=== PATIENT | male | born 1990 | race Two or more races ===

== ENCOUNTER 2016-11-16 19:40 | Emergency (ER) | payer SELFPAY ==
[~2016-11-16] VITALS: Ht 172.7 cm; Wt 76.2 kg
[2016-11-16 19:52] VITALS: BP 122/64
[2016-11-16] MEDS ORDERED: DIPHTH,PERTUSS(ACELL),TET TOX 0.5 ML DISP.SYRIN. VAX IM ONE (20:15)
--- NOTE | 2016-11-16 20:21 | PHYS DOC ---
Past Medical History Past Medical History: No Pertinent History Past Surgical History: No Surgical History Alcohol Use: None Drug Use: None Adult General Chief Complaint Chief Complaint: LACERATION/AVULSION HPI HPI Patient is a 26 year old male with no significant medical history who presents with left biceps laceration. Patient states she was passing by a door handle when the door handle stabbed him on the left biceps. Review of Systems Review of Systems Constitutional: Denies fever or chills [] Eyes: Denies change in visual acuity, redness, or eye pain [] HENT: Denies nasal congestion or sore throat [] Respiratory: Denies cough or shortness of breath [] Cardiovascular: No additional information not addressed in HPI [] GI: Denies abdominal pain, nausea, vomiting, bloody stools or diarrhea [] : Denies dysuria or hematuria [] Musculoskeletal: Denies back pain or joint pain [] Integument:left biceps laceration Neurologic: Denies headache, focal weakness or sensory changes [] Endocrine: Denies polyuria or polydipsia [] Current Medications Current Medications Current Medications Medications (Trade) Dose Ordered Sig/Charla Start Time Stop Time Status Last Admin Dose Admin Diphtheria/ Tetanus/Acell Pertussis (Boostrix) 0.5 ml ONCE ONCE 11/16/16 20:15 11/16/16 20:16 DC 11/16/16 20:17 0.5 ML Lidocaine/Sodium Bicarbonate (Buffered Lidocaine 1%) 20 ml 1X ONCE 11/16/16 20:30 11/16/16 20:31 DC 11/16/16 20:17 20 ML Allergies Allergies Allergies Coded Allergies Type Severity Reaction Last Updated Verified No Known Drug Allergies 11/16/16 No Physical Exam Physical Exam Constitutional: Well developed, well nourished, no acute distress, non-toxic appearance. [] HENT: Normocephalic, atraumatic, bilateral external ears normal, oropharynx moist, no oral exudates, nose normal. [] Eyes: PERRLA, EOMI, conjunctiva normal, no discharge. [] Neck: Normal range of motion, no tenderness, supple, no stridor. [] Cardiovascular:Heart rate regular rhythm, no murmur [] Lungs & Thorax: Bilateral breath sounds clear to auscultation [] Abdomen: Bowel sounds normal, soft, no tenderness, no masses, no pulsatile masses. [] Skin: Left biceps with a laceration approximately 3 cm long. There is no tendon involvement. Full range of motion to the left upper extremity. +2 left radial pulse. Cap refill less than 2 seconds left upper extremity. Adequate ulna medial and radial sensation to the left upper extremity. Extremities: No tenderness, no cyanosis, no clubbing, ROM intact, no edema. [] Neurologic: Alert and oriented X 3, normal motor function, normal sensory function, no focal deficits noted. [] Psychologic: Affect normal, judgement normal, mood normal. [] Current Patient Data Vital Signs Vital Signs Date Time Temp Pulse Resp B/P Pulse Ox O2 Delivery O2 Flow Rate FiO2 11/16/16 19:52 98.7 52 18 122/64 98 Room Air 98.7 EKG EKG [] Radiology/Procedures Radiology/Procedures Indication: Left biceps laceration Procedure: The patient was placed in the appropriate position and anesthesia around the laceration was 1% buffered lidocaine, the laceration was cleaned with the 100 ML of normal saline and Betadine. The laceration was closed with 4 interrupted sutures using 4. 0 Ethilon. The wound was covered with nonstick dressing. Total repaired wound length: Approximately 2 cm long Other Items: None The patient tolerated the procedure well Complications: None Course & Med Decision Making Course & Med Decision Making Pertinent Labs and Imaging studies reviewed. (See chart for details) Patient is in the ED with stab wound from a door handle to the left biceps. The laceration was closed as noted in procedures. Tetanus was updated. Provided wound care instructions as well as return precautions. Discharged in stable condition. F/u with PCP or Ed in 7-10 days for suture removal Dragon Disclaimer Dragon Disclaimer This electronic medical record was generated, in whole or in part, using a voice recognition dictation system. Departure Departure Impression: Primary Impression: Laceration of upper arm Disposition: 01 HOME, SELF-CARE Condition: STABLE (year and injury dysphagia like) Patient Instructions: Laceration Care, Adult Additional Instructions: You have left upper arm laceration. Keep it clean and dry. Apply Neosporin to the area twice a day. Follow up with the Ed or your doctor in 7-10 days for suture removal Problem Qualifiers Primary Impression: Laceration of upper arm Encounter type: initial encounter Laterality: left Qualified Code: S41.112A - Laceration without foreign body of left upper arm, initial encounter MUTUNGA,ILEANA TOBACCO DRUMMER Nov 16, 2016 20:21
[2016-11-16] MEDS ORDERED: LIDOCAINE 1% / SOD BICARB 8.4% 20 ML VIAL. IJ ONE (20:30)
== END 2016-11-16 20:53 | disposition home or self-care (01) ==
LOC: ER 19:40
DX: S46.222A Laceration of muscle, fascia and tendon of other parts of biceps, left arm, initial encounter (principal); W22.8XXA Striking against or struck by other objects, initial encounter; Y93.89 Activity, other specified; Y92.89 Other specified places as the place of occurrence of the external cause; Y99.8 Other external cause status
CPT/HCPCS: 12001; 90471; 90715; 99283-25